=== PATIENT | female | born 1965 | race Native Hawaiian/Other Pacific Islander ===

== ENCOUNTER → 2018-04-01 | Outpatient (CLI) | payer BC ==
--- NOTE | 2018-04-08 10:15 | MM ---
Reason for exam: screening (asymptomatic). Last mammogram was performed 1 year and 1 month ago. History: Patient is postmenopausal. Family history of breast cancer in maternal grandmother, breast cancer in maternal aunt, and breast cancer in paternal aunt. Pre-pectoral saline implants in both breasts, 2004. Taking antineoplastic beginning at age 52. Physical Findings: A clinical breast exam by your physician is recommended on an annual basis and results should be correlated with mammographic findings. MG Screening Mammo Implant/CAD Bilateral CC, MLO, and ID view(s) were taken. Prior study comparison: February 15, 2017, mammogram, performed at [facility]. February 01, 2015, mammogram, performed at [facility]. The breast tissue is heterogeneously dense. This may lower the sensitivity of mammography. There are benign appearing round calcifications bilaterally. Bilateral subglandular implants redemonstrated. ASSESSMENT: Benign, BI-RAD 2 RECOMMENDATION: Routine screening mammogram of both breasts in 1 year.
== END | disposition home or self-care (01) ==
LOC: RADMAMWWP 07:04
PROVIDERS: ATTEND Family Medicine
DX: Z12.31 Encounter for screening mammogram for malignant neoplasm of breast (principal)
CPT/HCPCS: 77067

== ENCOUNTER → 2019-04-17 | Outpatient (CLI) | payer BC ==
--- NOTE | 2019-04-18 11:18 | MM ---
Reason for exam: screening (asymptomatic). Last mammogram was performed 1 year ago. History: Patient is postmenopausal. Family history of breast cancer in maternal grandmother, breast cancer in maternal aunt, and breast cancer in paternal aunt. Pre-pectoral saline implants in both breasts, 2004. Taking antineoplastic beginning at age 52. Physical Findings: A clinical breast exam by your physician is recommended on an annual basis and results should be correlated with mammographic findings. MG 3D Screen Mammo Imp/Cad Bilateral CC, MLO, and ID view(s) were taken. Prior study comparison: April 01, 2018, bilateral MG screening mammo implant/CAD. February 15, 2017, mammogram, performed at [facility]. The breast tissue is heterogeneously dense. This may lower the sensitivity of mammography. Benign appearing bilateral calcifications. No suspicious abnormality. Bilateral prepectoral saline implants. No significant changes when compared with prior studies. ASSESSMENT: Benign, BI-RAD 2 RECOMMENDATION: Routine screening mammogram of both breasts in 1 year.
== END | disposition home or self-care (01) ==
LOC: RADMAMWWP 06:57
PROVIDERS: ATTEND Family Medicine
DX: Z12.39 Encounter for other screening for malignant neoplasm of breast (principal)
CPT/HCPCS: 77063; 77067

== ENCOUNTER 2019-06-02 06:37 | Inpatient (IN) | payer BC ==
[2019-06-02] MEDS ORDERED: HYDROmorphone 0.5 MG/0.5 ML SYRINGE IVP STA (07:02)
[2019-06-02] MEDS ORDERED: SODIUM CHLORIDE 0.9% 1,000 ML IV STA (07:02)
[2019-06-02 07:05] LABS: Glucose,Whole Blood 172 mg/dL (75-99)
[2019-06-02] MEDS: ONDANSETRON 4 MG/2 ML VIAL IVP STA (07:11)
--- NOTE | 2019-06-02 07:11 | ED ---
General Adult HPI - General Chief complaint: Abdominal Pain Stated complaint: Vomiting,Abdominal Pain Time Seen by Provider: 06/02/19 06:45 Source: patient, RN notes reviewed Mode of arrival: ambulatory Limitations: no limitations - History of Present Illness Initial comments: 53-year-old female with a past medical history diabetes mellitus, hyperlipide mami, hypertension presents to the emergency department for chief complaint of right upper quadrant pain. Patient has had this pain for about 3 hours now. States it started suddenly. Patient does admit to nausea as well. Does admit that it radiates to her back at times. Denies lower abdominal pain. Denies history of cholecystectomy. Patient denies any radiating chest pain or shortness of breath.Patient has no other complaints at this time including shortness of breath, chest pain, headache, or visual changes. - Related Data Allergies Allergy/AdvReac Type Severity Reaction Status Date / Time No Known Allergies Allergy Verified 06/02/19 06:51 Review of Systems ROS Statement: Those systems with pertinent positive or pertinent negative responses have been documented in the HPI. ROS Other: All systems not noted in ROS Statement are negative. Past Medical History Past Medical History: Diabetes Mellitus, Hyperlipidemia, Hypertension History of Any Multi-Drug Resistant Organisms: None Reported Past Surgical History: Section Past Psychological History: Anxiety Smoking Status: Never smoker Past Alcohol Use History: None Reported Past Drug Use History: None Reported General Exam Limitations: no limitations General appearance: alert, in no apparent distress Head exam: Present: atraumatic, normocephalic, normal inspection Eye exam: Present: normal appearance, PERRL, EOMI. Absent: scleral icterus, conjunctival injection, periorbital swelling ENT exam: Present: normal exam, mucous membranes moist Neck exam: Present: normal inspection, full ROM. Absent: tenderness, meningismus, lymphadenopathy Respiratory exam: Present: normal lung sounds bilaterally. Absent: respiratory distress, wheezes, rales, rhonchi, stridor Cardiovascular Exam: Present: regular rate, normal rhythm, normal heart sounds. Absent: systolic murmur, diastolic murmur, rubs, gallop, clicks GI/Abdominal exam: Present: soft, tenderness (RUQ tenderness), normal bowel sounds. Absent: distended, guarding, rebound, rigid Expanded GI/Abdominal exam: Present: Ortega's sign. Absent: psoas sign, obturator sign, heel tap sign Neurological exam: Present: alert Course Vital Signs 06/02/19 06:45 Temperature 97.0 F L Pulse Rate 73 Respiratory 18 Rate Blood Pressure 163/109 O2 Sat by Pulse 96 Oximetry EKG Findings - EKG Comments: EKG Findings:: Normal sinus rhythm, ventricular rate 67, ND interval 180, QTc 464 Medical Decision Making - Medical Decision Making 53-year-old female presents for right upper quadrant pain. Positive Ortega sign. Radiating to the back. Vitals are stable. CBC CMP unremarkable. No tr ansaminitis or hyperbilirubinemia. However abdominal ultrasound did reveal cholelithiasis with gallbladder hydrops and borderline CBD dilation. Correlate clinically for acute cholecystitis. Although patient does not have transaminitis her physical exam is consistent with a cholecystitis given pos itive Ortega sign pain radiating to the back. I consulted Dr. Tiwari who does accept this admission, recommends nothing by mouth diet. Patient was given one dose of Zosyn here in the emergency department. The patient does have an elevated lactic acid however does not meet sepsis criteria. Likely secondary to dehydration. - Lab Data Result diagrams: 06/02/19 07:04 06/02/19 07:04 Lab Results 06/02/19 06/02/19 06/02/19 Range/Units 07:03 07:04 07:04 WBC 6.9 (3.8-10.6) k/uL RBC 5.37 (3.80-5.40) m/uL Hgb 16.8 H (11.4-16.0) gm/dL Hct 50.0 H (34.0-46.0) % MCV 93.0 (80.0-100.0) fL MCH 31.3 (25.0-35.0) pg MCHC 33.7 (31.0-37.0) g/dL RDW 13.0 (11.5-15.5) % Plt Count 190 (150-450) k/uL Neutrophils % 66 % Lymphocytes % 20 % Monocytes % 5 % Eosinophils % 6 % Basophils % 1 % Neutrophils # 4.6 (1.3-7.7) k/uL Lymphocytes # 1.4 (1.0-4.8) k/uL Monocytes # 0.4 (0-1.0) k/uL Eosinophils # 0.4 (0-0.7) k/uL Basophils # 0.0 (0-0.2) k/uL Sodium (137-145) mmol/L Potassium (3.5-5.1) mmol/L Chloride (98-107) mmol/L Carbon Dioxide (22-30) mmol/L Anion Gap mmol/L BUN (7-17) mg/dL Creatinine (0.52-1.04) mg/dL Est GFR (CKD-EPI)AfAm (>60 ml/min/1.73 sqM) Est GFR (CKD-EPI)NonAf (>60 ml/min/1.73 sqM) Glucose (74-99) mg/dL POC Glucose (mg/dL) 172 H (75-99) mg/dL POC Glu Viticulture Teacher ID Sharri Olivera Plasma Lactic Acid Stevan (0.7-2.0) mmol/L Calcium (8.4-10.2) mg/dL Total Bilirubin (0.2-1.3) mg/dL AST (14-36) U/L ALT (4-34) U/L Alkaline Phosphatase (38-126) U/L Troponin I (0.000-0.034) ng/mL Total Protein (6.3-8.2) g/dL Albumin (3.5-5.0) g/dL Amylase (30-110) U/L Lipase (23-300) U/L Urine Color Light Yellow Urine Appearance Clear (Clear) Urine pH 7.0 (5.0-8.0) Ur Specific [place] 1.026 (1.001-1.035) Urine Protein Negative (Negative) Urine Glucose (UA) 4+ H (Negative) Urine Ketones Negative (Negative) Urine Blood Negative (Negative) Urine Nitrite Negative (Negative) Urine Bilirubin Negative (Negative) Urine Urobilinogen <2.0 (<2.0) mg/dL Ur Leukocyte Esterase Small H (Negative) Urine RBC 1 (0-5) /hpf Urine WBC 3 (0-5) /hpf Ur Squamous Epith Cells <1 (0-4) /hpf 06/02/19 06/02/19 06/02/19 Range/Units 07:04 07:04 07:04 WBC (3.8-10.6) k/uL RBC (3.80-5.40) m/uL Hgb (11.4-16.0) gm/dL Hct (34.0-46.0) % MCV (80.0-100.0) fL MCH (25.0-35.0) pg MCHC (31.0-37.0) g/dL RDW (11.5-15.5) % Plt Count (150-450) k/uL Neutrophils % % Lymphocytes % % Monocytes % % Eosinophils % % Basophils % % Neutrophils # (1.3-7.7) k/uL Lymphocytes # (1.0-4.8) k/uL Monocytes # (0-1.0) k/uL Eosinophils # (0-0.7) k/uL Basophils # (0-0.2) k/uL Sodium 140 (137-145) mmol/L Potassium 4.1 (3.5-5.1) mmol/L Chloride 104 (98-107) mmol/L Carbon Dioxide 25 (22-30) mmol/L Anion Gap 11 mmol/L BUN 20 H (7-17) mg/dL Creatinine 0.70 (0.52-1.04) mg/dL Est GFR (CKD-EPI)AfAm >90 (>60 ml/min/1.73 sqM) Est GFR (CKD-EPI)NonAf >90 (>60 ml/min/1.73 sqM) Glucose 178 H (74-99) mg/dL POC Glucose (mg/dL) (75-99) mg/dL POC Glu Viticulture Teacher ID Plasma Lactic Acid Stevan 2.5 H* (0.7-2.0) mmol/L Calcium 10.0 (8.4-10.2) mg/dL Total Bilirubin 0.4 (0.2-1.3) mg/dL AST 25 (14-36) U/L ALT 17 (4-34) U/L Alkaline Phosphatase 96 (38-126) U/L Troponin I <0.012 (0.000-0.034) ng/mL Total Protein 7.6 (6.3-8.2) g/dL Albumin 4.3 (3.5-5.0) g/dL Amylase 53 (30-110) U/L Lipase 98 (23-300) U/L Urine Color Urine Appearance (Clear) Urine pH (5.0-8.0) Ur Specific [place] (1.001-1.035) Urine Protein (Negative) Urine Glucose (UA) (Negative) Urine Ketones (Negative) Urine Blood (Negative) Urine Nitrite (Negative) Urine Bilirubin (Negative) Urine Urobilinogen (<2.0) mg/dL Ur Leukocyte Esterase (Negative) Urine RBC (0-5) /hpf Urine WBC (0-5) /hpf Ur Squamous Epith Cells (0-4) /hpf Disposition Clinical Impression: Acute cholecystitis Disposition: ADMITTED IP TO THIS HOSP Condition: Fair Is patient prescribed a controlled substance at d/c from ED?: No Time of Disposition: 08:32
[2019-06-02 07:42] LABS: Appearance,Urine Clear (Clear); Bilirubin,Urine Negative (Negative); Blood,Urine Negative (Negative); Color,Urine Light Yellow; Glucose,Urine (UA) 4+ (Negative); Ketones,Urine Negative (Negative); Leukocyte Esterase,Urine Small (Negative); Nitrite,Urine Negative (Negative); Protein,Urine Negative (Negative); RBC,Urine 1 /hpf (0-5); Specific Gravity,Urine 1.026 (1.001-1.035); Squamous Epithelial Cell,Urine <1 /hpf (0-4); Urobilinogen,Urine <2.0 mg/dL (<2.0); WBC,Urine 3 /hpf (0-5)
[2019-06-02 07:43] LABS: Basophils % (A) 1 %; Eosinophils # (A) 0.4 k/uL (0-0.7); Eosinophils % (A) 6 %; HGB 16.8 gm/dL (11.4-16.0); Lymphocytes # (A) 1.4 k/uL (1.0-4.8); Lymphocytes % (A) 20 %; MCH 31.3 pg (25.0-35.0); MCHC 33.7 g/dL (31.0-37.0); Monocytes # (A) 0.4 k/uL (0-1.0); Monocytes % (A) 5 %; Neutrophils # (A) 4.6 k/uL (1.3-7.7); Neutrophils % (A) 66 %; Platelet Count 190 k/uL (150-450); RBC 5.37 m/uL (3.80-5.40); WBC 6.9 k/uL (3.8-10.6)
[2019-06-02 07:48] LABS: Albumin 4.3 g/dL (3.5-5.0); Glucose 178 mg/dL (74-99); Total Protein 7.6 g/dL (6.3-8.2)
[2019-06-02 07:49] LABS: ALT 17 U/L (4-34); AST 25 U/L (14-36); African American GFR (CKD) >90 (>60 ml/min/1.73 sqM); Alkaline Phosphatase 96 U/L (38-126); Amylase 53 U/L (30-110); Anion Gap 11 mmol/L; Blood Urea Nitrogen 20 mg/dL (7-17); Carbon Dioxide 25 mmol/L (22-30); Chloride 104 mmol/L (98-107); Non-African American GFR(CKD) >90 (>60 ml/min/1.73 sqM); Potassium 4.1 mmol/L (3.5-5.1); Sodium 140 mmol/L (137-145); Total Bilirubin 0.4 mg/dL (0.2-1.3)
--- NOTE | 2019-06-02 08:02 | US ---
EXAMINATION TYPE: US abdomen limited DATE OF EXAM: 06/02/2019 COMPARISON: NONE CLINICAL HISTORY: RUQ. Abdomen pain and N/V x couple hours EXAM MEASUREMENTS: Liver Length: 17.0 cm Gallbladder Wall: 0.3 cm CBD: 0.6 cm Right Kidney: 12.2 x 5.8 x 5.6 cm Pancreas: visualized portions wnl, limited by overlying midline bowel gas Liver: wnl Gallbladder: hydropic, multiple mobile shadowing echogenic stones seen with largest measuring 1.8cm Evidence for sonographic Ortega's sign: yes CBD: borderline dilated Right Kidney: wnl IMPRESSION: Cholelithiasis with gallbladder hydrops and borderline CBD dilatation. Correlate clinically for acute cholecystitis.
--- NOTE | 2019-06-02 08:25 | XR ---
EXAMINATION TYPE: XR KUB DATE OF EXAM: 06/02/2019 COMPARISON: NONE HISTORY: Pain TECHNIQUE: Single supine KUB image of the abdomen is obtained FINDINGS: Small bowel demonstrates no evidence for dilatation or air fluid levels. Gas and fecal material is seen in non-distended colon. No convincing evidence for pneumoperitoneum. No unusual calcifications. The lung bases are clear. The osseous structures are intact. IMPRESSION: 1. Overall nonobstructive bowel gas pattern.
[2019-06-02] MEDS ORDERED: ONDANSETRON 4 MG/2 ML VIAL IVP PRN (08:26)
[2019-06-02] MEDS ORDERED: NALOXONE 0.4 MG/ML 1 ML VIAL IV PRN (08:26)
[2019-06-02] MEDS ORDERED: HYDROmorphone 0.5 MG/0.5 ML SYRINGE IVP PRN (08:26)
[2019-06-02] MEDS ORDERED: PIPERACILLIN-TAZOBACTAM 3.375 GM in SODIUM CHLORIDE 0.9% 100 ML IVPB STA (08:27)
[2019-06-02] MEDS: SODIUM CHLORIDE 0.9% 1,000 ML IV SCH (08:52)
[2019-06-02] MEDS: PANTOPRAZOLE 40 MG/10 ML VIAL IVP SCH (10:49)
[2019-06-02] MEDS: LISINOPRIL 20 MG TAB PO SCH (10:49)
[2019-06-02] MEDS: VENLAFAXINE HCL ER 150 MG CAP PO SCH (11:20)
[2019-06-02] MEDS: PRAVASTATIN SODIUM 20 MG TAB PO SCH (11:20)
[2019-06-02 11:27] LABS: Glucose,Whole Blood 106 mg/dL (75-99)
[2019-06-02] MEDS: INSULIN ASPART (NovoLOG) 100 UNIT/ML VIAL SQ SCH ×3 (11:58→20:08)
--- NOTE | 2019-06-02 14:46 | P.GSHP ---
History of Present Illness H&P Date: 06/02/19 Chief Complaint: abdominal pain CHIEF COMPLAINT: Abdominal pain HISTORY OF PRESENT ILLNESS: 53-year-old female who presented to the emergency room with a chief complaint of abdominal pain. Patient reports she began having an aching pain in her right upper quadrant this morning. She reports the pain radiated to her back. She reports nausea and emesis this morning which has since resolved. PAST MEDICAL HISTORY: See list. PAST SURGICAL HISTORY: See list. SOCIAL HISTORY: No illicit drug use. REVIEW OF SYSTEMS: CONSTITUTIONAL: Denies fever or chills. HEENT: Denies blurred vision, vision changes, or eye pain. Denies hemoptysis CARDIOVASCULAR: Denies chest pain or pressure. RESPIRATORY: No shortness of breath. GASTROINTESTINAL: Refer to [facility] for pertinent findings HEMATOLOGIC: Denies bleeding disorders. GENITOURINARY: Denies any blood in urine. SKIN: Denies pruitis. Denies rash. PHYSICAL EXAM: VITAL SIGNS: Reviewed. GENERAL: Well-developed in no acute distress. HEENT: No sclera icterus. Extraocular movements grossly intact. Moist buccal mucosa. Head is atraumatic, normocephalic. ABDOMEN: Soft. Nondistended. Nontender. NEUROLOGIC: Alert and oriented. Cranial nerves II through XII grossly intact. LABORATORY DATA: WBC 6.9. Hemoglobin 16.8. Platelet count 190. Lactic acid 2.5. Bilirubin 0.4. AST 25. ALT 17. IMAGING: -Abdominal x-ray: Overall nonobstructive bowel gas pattern -Abdominal ultrasound: Cholelithiasis with gallbladder hydrops and borderline CBD dilation. ASSESSMENT: 1. Abdominal pain 2. Cholelithiasis PLAN: -Clear liquid diet. Nothing by mouth midnight -Patient to undergo laparoscopic cholecystectomy tomorrow with Dr. Tiwari Nurse practitioner note has been reviewed by physician. Signing provider agrees with the documented findings, assessment, and plan of care. Past Medical History Past Medical History: Diabetes Mellitus, Hyperlipidemia, Hypertension History of Any Multi-Drug Resistant Organisms: None Reported Past Surgical History: Section Past Anesthesia/Blood Transfusion Reactions: No Reported Reaction Past Psychological History: Anxiety Smoking Status: Never smoker Past Alcohol Use History: None Reported Past Drug Use History: None Reported - Past Family History Mother Family Medical History: Diabetes Mellitus Father Family Medical History: Cancer, Diabetes Mellitus, Hypertension Medications and Allergies Home Medications Medication Instructions Recorded Confirmed Type Ertugliflozin/Metformin 1 tab PO BID 06/02/19 06/02/19 History [Segluromet 7.5-1,000 mg Tablet] Lisinopril 20 mg PO DAILY 06/02/19 06/02/19 History Pravastatin Sodium [Pravachol] 20 mg PO DAILY 06/02/19 06/02/19 History Testosterone Cypionate 25 mg IM Q21D 06/02/19 06/02/19 History [Depo-Testosterone] Venlafaxine HCl ER [Effexor Xr] 150 mg PO DAILY 06/02/19 06/02/19 History Allergies Allergy/AdvReac Type Severity Reaction Status Date / Time No Known Allergies Allergy Verified 06/02/19 09:20 Surgical - Exam Vital Signs Temp Pulse Resp BP Pulse Ox 97.0 F L 73 18 163/109 96 06/02/19 06:45 06/02/19 06:45 06/02/19 06:45 06/02/19 06:45 06/02/19 06:45 Results - Labs 06/02/19 07:04 06/02/19 07:04 Abnormal Lab Results - Last 24 Hours (Table) 06/02/19 06/02/19 06/02/19 Range/Units 07:03 07:04 07:04 Hgb 16.8 H (11.4-16.0) gm/dL Hct 50.0 H (34.0-46.0) % BUN (7-17) mg/dL Glucose (74-99) mg/dL POC Glucose (mg/dL) 172 H (75-99) mg/dL Plasma Lactic Acid Stevan (0.7-2.0) mmol/L Urine Glucose (UA) 4+ H (Negative) Ur Leukocyte Esterase Small H (Negative) 06/02/19 06/02/19 06/02/19 Range/Units 07:04 07:04 11:26 Hgb (11.4-16.0) gm/dL Hct (34.0-46.0) % BUN 20 H (7-17) mg/dL Glucose 178 H (74-99) mg/dL POC Glucose (mg/dL) 106 H (75-99) mg/dL Plasma Lactic Acid Stevan 2.5 H* (0.7-2.0) mmol/L Urine Glucose (UA) (Negative) Ur Leukocyte Esterase (Negative) Diabetes panel 06/02/19 Range/Units 07:04 Sodium 140 (137-145) mmol/L Potassium 4.1 (3.5-5.1) mmol/L Chloride 104 (98-107) mmol/L Carbon Dioxide 25 (22-30) mmol/L BUN 20 H (7-17) mg/dL Creatinine 0.70 (0.52-1.04) mg/dL Glucose 178 H (74-99) mg/dL Calcium 10.0 (8.4-10.2) mg/dL AST 25 (14-36) U/L ALT 17 (4-34) U/L Alkaline Phosphatase 96 (38-126) U/L Total Protein 7.6 (6.3-8.2) g/dL Albumin 4.3 (3.5-5.0) g/dL Calcium panel 06/02/19 Range/Units 07:04 Calcium 10.0 (8.4-10.2) mg/dL Albumin 4.3 (3.5-5.0) g/dL Pituitary panel 06/02/19 Range/Units 07:04 Sodium 140 (137-145) mmol/L Potassium 4.1 (3.5-5.1) mmol/L Chloride 104 (98-107) mmol/L Carbon Dioxide 25 (22-30) mmol/L BUN 20 H (7-17) mg/dL Creatinine 0.70 (0.52-1.04) mg/dL Glucose 178 H (74-99) mg/dL Calcium 10.0 (8.4-10.2) mg/dL Adrenal panel 06/02/19 Range/Units 07:04 Sodium 140 (137-145) mmol/L Potassium 4.1 (3.5-5.1) mmol/L Chloride 104 (98-107) mmol/L Carbon Dioxide 25 (22-30) mmol/L BUN 20 H (7-17) mg/dL Creatinine 0.70 (0.52-1.04) mg/dL Glucose 178 H (74-99) mg/dL Calcium 10.0 (8.4-10.2) mg/dL Total Bilirubin 0.4 (0.2-1.3) mg/dL AST 25 (14-36) U/L ALT 17 (4-34) U/L Alkaline Phosphatase 96 (38-126) U/L Total Protein 7.6 (6.3-8.2) g/dL Albumin 4.3 (3.5-5.0) g/dL
[2019-06-02] MEDS: HEPARIN SODIUM,PORCINE 5,000 UNIT/ML 1 ML VIAL SQ SCH (15:47)
[2019-06-02] MEDS: ACETAMINOPHEN TAB 325 MG TAB PO PRN ×2 (15:47→21:25)
[2019-06-02 17:08] LABS: Glucose,Whole Blood 93 mg/dL (75-99)
--- NOTE | 2019-06-02 18:39 | P.CONS ---
History of Present Illness - Reason for Consult Consult date: 06/02/19 Medical management Requesting physician: Renard Tiwari - Chief Complaint Abdominal pain - History of Present Illness Consultation: This is a very pleasant 53-year-old patient of Dr. Russell Valdez. Chronic stable medical conditions include diabetes mellitus type 2, hyperlipidemia, hypertension,. Denies any cardiac history. Early this morning with right upper quadrant abdominal pain. Did not radiate anywhere. Associated nausea been followed by vomiting. No fever no chills. Symptoms persisted decided to go to the ER. Underwent abdominal ultrasound didn't confirm gallbladder disease. 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 Physical examination: VITAL SIGNS: 97, 73, 18, 132/80, 99% on room air GENERAL: BMI 37.1, sitting up in bed, awake. EYES: Pupils equal. Conjunctiva normal. HEENT: External appearance of nose and ears normal, oral cavity grossly normal. NECK: JVD not raised; masses not palpable. HEART: First and second heart sounds are normal; no edema. LUNGS: Respiratory rate normal; clear to auscultation. ABDOMEN: Soft, right upper quadrant tenderness, no guarding or rigidity, liver spleen not palpable, no masses palpable. PSYCH: Alert and oriented x3; mood and affect normal. NEUROLOGICAL: Cranial nerves grossly intact; no facial asymmetry, power and sensation grossly intact. LYMPHATICS: No lymph nodes palpable in the axilla and neck INVESTIGATIONS, reviewed in the clinical context: White count 6.9 hemoglobin 16.8 platelets 190 progression 4.1 creatinine 0.7 Lactic acid 2.5 Troponin I is less than 0.012 EKG tracing personally reviewed by me-normal sinus rhythm some nonspecific findings Abdominal ultrasound-gallbladder showing hydropic multiple mobile shadow is echogenic stones largest being 1.8 cm,: By -borderline dilated Assessment: -Multiple choledocholithiasis, symptomatic -Obesity BMI 37.1 -Diabetes mellitus type 2 on oral hypoglycemic -Essential hypertension -Hyperlipidemia Plan: Home medications resumed. Accu-Cheks will be closely followed. IV fluids. No obvious evidence of infection. Getting subcu heparin for DVT prophylaxis. From a cardiovascular standpoint patient is a low risk for surgery with no cardiac contraindications for the same. Discussed with the patient question were answered. Thank you Dr. Tiwari Past Medical History Past Medical History: Diabetes Mellitus, Hyperlipidemia, Hypertension History of Any Multi-Drug Resistant Organisms: None Reported Past Surgical History: Section Past Anesthesia/Blood Transfusion Reactions: No Reported Reaction Past Psychological History: Anxiety Smoking Status: Never smoker Past Alcohol Use History: None Reported Past Drug Use History: None Reported - Past Family History Mother Family Medical History: Diabetes Mellitus Father Family Medical History: Cancer, Diabetes Mellitus, Hypertension Medications and Allergies Home Medications Medication Instructions Recorded Confirmed Type Ertugliflozin/Metformin 1 tab PO BID 06/02/19 06/02/19 History [Segluromet 7.5-1,000 mg Tablet] Lisinopril 20 mg PO DAILY 06/02/19 06/02/19 History Pravastatin Sodium [Pravachol] 20 mg PO DAILY 06/02/19 06/02/19 History Testosterone Cypionate 25 mg IM Q21D 06/02/19 06/02/19 History [Depo-Testosterone] Venlafaxine HCl ER [Effexor Xr] 150 mg PO DAILY 06/02/19 06/02/19 History Allergies Allergy/AdvReac Type Severity Reaction Status Date / Time No Known Allergies Allergy Verified 06/02/19 09:20 Physical Exam Vitals: Vital Signs Temp Pulse Pulse Resp BP BP Pulse Ox 06/02/19 11:22 96.0 F L 71 18 124/80 97 06/02/19 08:00 98.0 F 76 18 132/80 99 06/02/19 06:45 97.0 F L 73 18 163/109 96 Intake and Output 06/02/19 06/02/19 06/02/19 06:59 14:59 22:59 Intake Total 1060 Balance 1060 Intake: Intake, IV Titration 460 Amount Piperacillin-Tazobactam 3 100 .375 gm In Sodium Chloride 0.9% 100 ml @ 200 mls/hr IVPB ONCE STA Rx#:[id number] Sodium Chloride 0.9% 1, 360 000 ml @ 120 mls/hr IV . Q8H20M TASNEEM Rx#:[id number] Oral 600 Other: # Voids 1 Weight 104.281 kg 104.281 kg Results CBC & Chem 7: 06/02/19 07:04 06/02/19 07:04 Labs: Abnormal Lab Results - Last 24 Hours (Table) 06/02/19 06/02/19 06/02/19 Range/Units 07:03 07:04 07:04 Hgb 16.8 H (11.4-16.0) gm/dL Hct 50.0 H (34.0-46.0) % BUN (7-17) mg/dL Glucose (74-99) mg/dL POC Glucose (mg/dL) 172 H (75-99) mg/dL Plasma Lactic Acid Stevan (0.7-2.0) mmol/L Urine Glucose (UA) 4+ H (Negative) Ur Leukocyte Esterase Small H (Negative) 06/02/19 06/02/19 06/02/19 Range/Units 07:04 07:04 11:26 Hgb (11.4-16.0) gm/dL Hct (34.0-46.0) % BUN 20 H (7-17) mg/dL Glucose 178 H (74-99) mg/dL POC Glucose (mg/dL) 106 H (75-99) mg/dL Plasma Lactic Acid Stevan 2.5 H* (0.7-2.0) mmol/L Urine Glucose (UA) (Negative) Ur Leukocyte Esterase (Negative)
[2019-06-02 20:02] LABS: Glucose,Whole Blood 104 mg/dL (75-99)
[2019-06-03] MEDS ORDERED: LACTATED RINGERS 1,000 ML IV SCH (06:36)
[2019-06-03 07:11] LABS: Glucose,Whole Blood 134 mg/dL (75-99)
[2019-06-03] MEDS ORDERED: IV FLUID CONTINUATION 1,000 ML IV ONE (07:38)
[2019-06-03] MEDS: ACETAMINOPHEN TAB 325 MG TAB PO PRN (07:41)
[2019-06-03] MEDS: INSULIN ASPART (NovoLOG) 100 UNIT/ML VIAL SQ SCH ×2 (07:47→12:49)
[2019-06-03] MEDS: HEPARIN SODIUM,PORCINE 5,000 UNIT/ML 1 ML VIAL SQ SCH ×3 (07:48→07:56)
[2019-06-03] MEDS: ONDANSETRON 4 MG/2 ML VIAL IVP STA (07:55)
[2019-06-03] MEDS ORDERED: DEXAMETHASONE SOD PHOS (MDV) 100 MG/10 ML VIAL IVP ONE (07:55)
[2019-06-03] MEDS ORDERED: ROCURONIUM BROMIDE 10 MG/ML 5 ML VIAL IV ONE (08:45)
[2019-06-03] MEDS ORDERED: KETOROLAC 30 MG/ML 1 ML VIAL ONE (08:45)
[2019-06-03] MEDS ORDERED: PROPOFOL 10 MG/ML 20 ML VIAL IV ONE (08:45)
[2019-06-03] MEDS ORDERED: LABETALOL 5 MG/ML VIAL MDV ONE (08:45)
[2019-06-03] MEDS ORDERED: NEOSTIGMINE 1 MG/ML 10 ML VIAL ONE (08:45)
[2019-06-03] MEDS ORDERED: LIDOCAINE 1% INJ 10MG/ML (20 ML MDV) ONE (08:45)
[2019-06-03] MEDS ORDERED: MIDAZOLAM 2 MG/2 ML VIAL ONE (08:45)
[2019-06-03] MEDS ORDERED: ALFENTANIL 500 MCG/ML 2 ML AMP IV ONE (08:45)
[2019-06-03] MEDS ORDERED: SUCCINYLCHOLINE CHLORIDE 100 MG/5 ML SYR IV ONE (08:45)
[2019-06-03] MEDS ORDERED: GLYCOPYRROLATE 0.2 MG/ML 2 ML VIAL ONE (08:45)
[2019-06-03] MEDS ORDERED: BUPIVACAIN-EPI 0.25%-1:200,000 30 ML VIAL SQ ONE (08:46)
[2019-06-03] MEDS ORDERED: ceFAZolin 1,000 MG VIAL IVPB ONE (08:50)
[2019-06-03] MEDS ORDERED: LACTATED RINGERS 1,000 ML IV ONE (09:15)
--- NOTE | 2019-06-03 09:55 | P.OP ---
Date of Procedure: 06/03/19 Preoperative Diagnosis: Cholecystitis Postoperative Diagnosis: Cholecystitis Procedure(s) Performed: Laparoscopic cholecystectomy Anesthesia: OFE Surgeon: Renard Tiwari Estimated Blood Loss (ml): 5 Pathology: other (Gallbladder) Condition: stable Disposition: PACU Description of Procedure: The patient was placed on the operating table. The patient received a general endotracheal tube anesthesia. The patients abdomen was prepped and draped in the usual sterile fashion. Through an infraumbilical stab incision, the fascia of the anterior abdominal wall was grasped with a pair of Kochers and then the Veress needle was placed in the peritoneal cavity. Position of the Veress needle was confirmed with positive drop test. The abdomen was then insufflated. After adequate insufflation, the 10 mm trocar was placed in the peritoneal cavity. Following this the laparoscope was placed in the peritoneal cavity. The patient was placed in the head-up, right side up position and then a 5 mm trocar was placed in the right lateral and right subcostal position under direct visualization. A 8 mm trocar was placed in the epigastric position. The gallbladder was grasped in the fundus and infundibulum. Traction on the gallbladder was placed in the lateral and the cephalad positions. The triangle of Calot was visualized.. The cystic duct was bluntly dissected until the union of the cystic duct and common bile duct was seen. A critical view of safety was achieved. The cystic duct was then divided and sealed with the Harmonic scissors. A PDS Endoloop was then placed throughout the cystic duct stump. The cystic artery divided and sealed with the Harmonic scissors. The gallbladder was then removed from the liver bed using Harmonic scissors. The gallbladder was then extracted through the epigastric port site. Operative field was checked for any bleeding spots and Harmonic scissors was used to coagulate the liver bed. The abdomen was irrigated. The trocars were removed. The skin was closed using interrupted 3-0 Vicryl suture. Dermabond dressing were applied. The patient tolerated the procedure well.
[2019-06-03 10:10] LABS: Glucose,Whole Blood 178 mg/dL (75-99)
[2019-06-03] MEDS ORDERED: HYDROmorphone 1 MG/ML 1 ML SYRINGE IVP ONE (10:18)
[2019-06-03 11:36] LABS: Glucose,Whole Blood 200 mg/dL (75-99)
[2019-06-03] MEDS: VENLAFAXINE HCL ER 150 MG CAP PO SCH (12:41)
[2019-06-03] MEDS: PRAVASTATIN SODIUM 20 MG TAB PO SCH (12:41)
[2019-06-03] MEDS: LISINOPRIL 20 MG TAB PO SCH (12:42)
[2019-06-03] MEDS: SODIUM CHLORIDE 0.9% 1,000 ML IV SCH (12:43)
[2019-06-03 12:56] VITALS: BP 132/82; PULSE 60; RESP 17; TEMP 98.1
[2019-06-03] MEDS: PANTOPRAZOLE 40 MG/10 ML VIAL IVP SCH (13:19)
--- NOTE | 2019-06-03 14:27 | P.DS ---
Providers Date of admission: 06/02/19 08:25 Expected date of discharge: 06/03/19 Attending physician: Renard Tiwari Consults: 06/02/19 10:38 Consult Physician Routine Consulting Provider: Flip Sandoval Consult Reason/Comments: medical management Do you want consulting provider notified?: Yes Primary care physician: Russell Valdez [facility] Hospital Course: 53-year-old female who presented to the emergency room with a chief complaint of abdominal pain. Patient was found to have cholecystitis and cholelithiasis. She underwent laparoscopic cholecystectomy with Dr. Tiwari on 06/03/2019. Patient is doing well postoperatively without any immediate complications. She was deemed stable for discharge home today per Dr. Tiwari. Please see EMR for further hospital course details. Discharge Diagnosis: 1. Abdominal pain 2. Cholelithiasis 3. Cholecystitis Nurse practitioner note has been reviewed by physician. Signing provider agrees with the documented findings, assessment, and plan of care. Patient Condition at Discharge: Stable Plan - Discharge Summary Discharge Rx Participant: Yes New Discharge Prescriptions: New Hydrocodone/Acetaminophen [[place] 5-325] 1 tab PO Q6HR PRN #10 tab PRN Reason: Pain No Action Venlafaxine HCl ER [Effexor Xr] 150 mg PO DAILY Pravastatin Sodium [Pravachol] 20 mg PO DAILY Ertugliflozin/Metformin [Segluromet 7.5-1,000 mg Tablet] 1 tab PO BID Lisinopril 20 mg PO DAILY Testosterone Cypionate [Depo-Testosterone] 25 mg IM Q21D Discharge Medication List Ertugliflozin/Metformin [Segluromet 7.5-1,000 mg Tablet] 1 tab PO BID 06/02/19 [History] Lisinopril 20 mg PO DAILY 06/02/19 [History] Pravastatin Sodium [Pravachol] 20 mg PO DAILY 06/02/19 [History] Testosterone Cypionate [Depo-Testosterone] 25 mg IM Q21D 06/02/19 [History] Venlafaxine HCl ER [Effexor Xr] 150 mg PO DAILY 06/02/19 [History] Hydrocodone/Acetaminophen [[place] 5-325] 1 tab PO Q6HR PRN #10 tab 06/03/19 [Rx] Follow up Appointment(s)/Referral(s): Russell Valdez MD [Primary Care Provider] - 1-2 days Renard Tiwari MD [STAFF PHYSICIAN] - 1 Week Activity/Diet/Wound Care/Special Instructions: No driving while taking [place] No lifting over 10 pounds You may shower. No soaking or tub baths Very light activity until you are reevaluated at your follow up appointment with your surgeon
--- NOTE | 2019-06-03 19:48 | P.PN ---
Progress Note - Text Progress Note Date: 06/03/19 - Chief Complaint Abdominal pain Interval history: This is a very pleasant 53-year-old patient of Dr. Russell Valdez. Chronic stable medical conditions include diabetes mellitus type 2, hyperlipidemia, hypertension,. Denies any cardiac history. Early this morning with right upper quadrant abdominal pain. Did not radiate anywhere. Associated nausea been followed by vomiting. No fever no chills. Symptoms persisted decided to go to the ER. Underwent abdominal ultrasound didn't confirm gallbladder disease. Admitted for the same Today-underwent laparoscopic cholecystectomy. Patient had just returned to his room this morning. Slight pain. No nausea vomiting. Review of systems: Was done for constitutional, cardiovascular, GI, pulmonary. relevant finding as above Current medications reviewed in today's electronic records Physical examination: VITAL SIGNS: 98.3, 66, 16, 135/80, 93% on 2 L GENERAL: Laying in bed, awake EYES: Pupils equal. Conjunctiva normal. HEENT: External appearance of nose and ears normal, oral cavity grossly normal. NECK: JVD not raised; masses not palpable. HEART: First and second heart sounds are normal; no edema. LUNGS: Respiratory rate normal; clear to auscultation. ABDOMEN: Soft, right upper quadrant tenderness, no guarding or rigidity, liver spleen not palpable, no masses palpable. PSYCH: Alert and oriented x3; mood and affect normal. INVESTIGATIONS, reviewed in the clinical context: White count 6.9 hemoglobin 16.8 platelets 190 progression 4.1 creatinine 0.7 Lactic acid 2.5 Troponin I is less than 0.012 EKG tracing personally reviewed by me-normal sinus rhythm some nonspecific findings Abdominal ultrasound-gallbladder showing hydropic multiple mobile shadow is echogenic stones largest being 1.8 cm,: By -borderline dilated Assessment: -Multiple choledocholithiasis, symptomatic-status post laparoscopic cholecystectomy today -Obesity BMI 37.1 -Diabetes mellitus type 2 on oral hypoglycemic -Essential hypertension -Hyperlipidemia Plan: Doing well. Continue current medication treatment plan. Follow Accu-Cheks. Thank you Dr. Tiwari
[2019-06-04] MEDS ORDERED: PANTOPRAZOLE 40 MG TABLET PO SCH (09:00)
== END 2019-06-03 15:26 | disposition home or self-care (01) | DRG 418 ==
LOC: EC 06:37 → 5NMEDONC 08:25
PROVIDERS: ADMIT Surgery; ATTEND Surgery
PROC: 0FT44ZZ Resection of Gallbladder, Percutaneous Endoscopic Approach (ICD-10-PCS; principal; 2019-06-03 08:25)
DX: K80.00 Calculus of gallbladder with acute cholecystitis without obstruction (principal); K82.1 Hydrops of gallbladder; I10 Essential (primary) hypertension; E78.5 Hyperlipidemia, unspecified; E11.9 Type 2 diabetes mellitus without complications; F41.9 Anxiety disorder, unspecified; E86.0 Dehydration; R79.89 Other specified abnormal findings of blood chemistry; E66.9 Obesity, unspecified; Z68.37 Body mass index [BMI] 37.0-37.9, adult; Z79.84 Long term (current) use of oral hypoglycemic drugs; Z79.899 Other long term (current) drug therapy; Z98.890 Other specified postprocedural states; Z83.3 Family history of diabetes mellitus; Z80.9 Family history of malignant neoplasm, unspecified; Z82.49 Family history of ischemic heart disease and other diseases of the circulatory system
CPT/HCPCS: 36415; 74018; 76705; 80053; 81001; 81025; 82150; 83605; 83690; 84484; 85025; 87040; 88304; 93005; 96361; 96365; 96375; 99285

== ENCOUNTER → 2020-05-19 | Outpatient (CLI) | payer BC ==
[~2020-05-19] MED LIST: DOBUTamine DRIP for NUC MED 500 MG in DEXTROSE/WATER 1 250ML.BAG IV PRN
--- NOTE | 2020-05-19 17:18 | ECHOS ---
STRESS ECHOCARDIOGRAM LUMASON: ____ Vial INDICATIONS: Chest pain. MEDICATIONS: BASELINE HEART RATE: 78 BASELINE BLOOD PRESSURE: 119/89 MAXIMUM HEART RATE: 105 MAXIMUM BLOOD PRESSURE: 183/51 85% MPHR: 142 100% MPHR: 167 METS: MAXIMUM STAGE REACHED: TOTAL EXERCISE TIME: CLINICAL INFORMATION: This 54-year-old female referred by Dr. Valdez for a stress test when the patient got up to start the stress test she became extremely weak and diaphoretic, nauseous, sweaty and was laid supine. Her blood pressure was 100 mmHg. EKG was normal, when she became asymptomatic (patient had no chest pain) dobutamine stress echo was performed. However, at the 30 mcg of dobutamine, once again, she started complaining of being nauseous, sweaty and diaphoretic and the test was prematurely terminated. However, we were able to obtain information regarding the low-dose dobutamine stress echo, which is as follows: Baseline heart rate 78 beats per minute. Baseline blood pressure 119/89 mmHg. Baseline 12-lead EKG showed sinus rhythm with normal ST segments with a leftward axis. The patient received dobutamine infusion per protocol. There were no ECG changes of ischemia. No arrhythmias noted. Peak heart rate 105 beats per minute. Normal blood pressure response. There was no evidence for hypertension during dobutamine infusion. The baseline 2D echo images were suboptimal and Definity contrast was used with 10 mcg followed by 20 mcg of dobutamine. There was a stepwise increment in overall LV contractility without developing any wall motion abnormalities. At recovery, regional and global LV systolic function remained normal. IMPRESSION: 1. Low level dobutamine stress echo shows no evidence for ischemia. 2. Patient could not tolerate higher doses of dobutamine, she would get very nauseous and sweaty. She was also not able to exercise and when she stood up she would get very nauseous and sweaty. Her blood pressure upon standing was 100 mmHg. 3. I recommended that the patient hold hydrochlorothiazide and follow up with her primary care physician. MMODL / IJN: [id number] /
== END | disposition home or self-care (01) ==
LOC: RADNMMAIN 09:50
PROVIDERS: ATTEND Family Medicine
DX: R00.2 Palpitations (principal)
CPT/HCPCS: 93351; J1250; Q9950

== ENCOUNTER → 2020-07-01 | Outpatient (CLI) | payer BC ==
--- NOTE | 2020-07-05 09:10 | MM ---
Reason for exam: screening (asymptomatic). Last mammogram was performed 1 year and 2 months ago. History: Patient is postmenopausal. Family history of breast cancer in maternal grandmother, breast cancer in maternal aunt, and breast cancer in paternal aunt. Pre-pectoral saline implants in both breasts, 2004. Taking hormonal contraceptives. Taking antineoplastic beginning at age 52. Physical Findings: A clinical breast exam by your physician is recommended on an annual basis and results should be correlated with mammographic findings. MG 3D Screen Mammo Imp/Cad Bilateral CC, MLO, and ID view(s) were taken. Prior study comparison: April 17, 2019, bilateral MG 3d screen mammo imp/cad. April 01, 2018, bilateral MG screening mammo implant/CAD. There are scattered fibroglandular densities. Bilateral implants are intact. No significant changes when compared with prior studies. ASSESSMENT: Benign, BI-RAD 2 RECOMMENDATION: Routine screening mammogram of both breasts in 1 year.
== END | disposition home or self-care (01) ==
LOC: RADMAMWWP 07:36
PROVIDERS: ATTEND Family Medicine
DX: Z12.31 Encounter for screening mammogram for malignant neoplasm of breast (principal); Z78.0 Asymptomatic menopausal state; Z80.3 Family history of malignant neoplasm of breast
CPT/HCPCS: 77063; 77067

== ENCOUNTER → 2021-07-29 | Outpatient (CLI) | payer BC ==
--- NOTE | 2021-08-02 09:40 | MM ---
Reason for Exam: Screening (asymptomatic). Last mammogram was performed 1 year(s) and 1 month(s) ago. Patient History: Menarche at age 14. First Full-Term at age 26. Postmenopausal. 2003, Bilateral Implants. Maternal grandmother had breast cancer at or over age 50. Paternal aunt had breast cancer at or over age 50. Maternal aunt had breast cancer at or over age 50. Risk Values: Bridgette 5 year model risk: 1.3%. NCI Lifetime model risk: 9.3%. Prior Study Comparison: 04/01/2018 Bilateral Screening Mammogram, [facility]. 04/17/2019 Bilateral Screening Mammogram, [facility]. 07/01/2020 Bilateral Screening Mammogram, [facility]. Tissue Density: There are scattered fibroglandular densities. Findings: Analyzed By CAD. Bilateral breast implants are present. No significant interval changes are evident. Pattern appears stable. No suspicious groups of microcalcifications, spiculated or lobular masses, architectural distortion or other secondary signs of malignancy are mammographically apparent. Overall Assessment: Benign, BI-RAD 2 Management: Screening Mammogram of both breasts in 1 year. A negative mammogram report should not preclude additional follow up of suspicious palpable abnormalities. Patient should continue monthly self breast exam. A clinical breast exam by your physician is recommended on an annual basis and results should be correlated with mammographic findings. Electronically signed and approved by: Reuben Mcgraw D.O. Radiologis
== END | disposition home or self-care (01) ==
LOC: RADMAMWWP 09:50
PROVIDERS: ATTEND Family Medicine
DX: Z12.31 Encounter for screening mammogram for malignant neoplasm of breast (principal); Z78.0 Asymptomatic menopausal state; Z80.3 Family history of malignant neoplasm of breast
CPT/HCPCS: 77063; 77067

== ENCOUNTER → 2022-12-06 | Outpatient (CLI) | payer BC | END | disposition home or self-care (01) | LOC: LABWHC1 16:23 | PROVIDERS: ATTEND Family Medicine | DX: H34.9 Unspecified retinal vascular occlusion (principal) | CPT/HCPCS: 36415; 81241; 85303; 85306 ==

== ENCOUNTER → 2022-12-08 | Outpatient (CLI) | payer BC ==
--- NOTE | 2022-12-08 09:32 | CT ---
EXAMINATION TYPE: CT brain wo con CT DLP: 1147 mGycm, Automated exposure control for dose reduction was used. DATE OF EXAM: 12/08/2022 8:50 AM COMPARISON: None. CLINICAL INDICATION:Female, 57 years old with history of H34.9 UNSPECIFIED RETINAL VASCULAR OCCLUSION , Lt eye blurred vision TECHNIQUE: Brain: Axial CT images of the brain were obtained with coronal and sagittal reformats created and rev iewed. Contrast used: None. Oral contrast used: None. FINDINGS: Brain: Extra-axial spaces: No abnormal extra-axial fluid collections. Ventricular system: Within normal limits Cerebral parenchyma: No acute intraparenchymal hemorrhage or mass effect. The hood-white junction is well differentiated. Cerebellum: Unremarkable. Mass effect: No evidence of midline shift. Intracranial vasculature: unremarkable Soft tissues: Normal. Calvarium/osseous structures: No depressed skull fracture. Paranasal sinuses and mastoid air cells: Mild scattered paranasal sinus disease. Visualized orbits: Orbital contents are intact. IMPRESSION: No acute intracranial process.
== END | disposition home or self-care (01) ==
LOC: RADCTMAIN 08:17
PROVIDERS: ATTEND Family Medicine
DX: H34.9 Unspecified retinal vascular occlusion (principal); Z82.49 Family history of ischemic heart disease and other diseases of the circulatory system
CPT/HCPCS: 70450

== ENCOUNTER → 2022-12-12 | Outpatient (CLI) | payer BC ==
--- NOTE | 2022-12-13 11:11 | CA ---
Transthoracic Echo Report Name: Kenzie Prather Age: 57 Gender: F : 1965 Exam Date: 12/12/2022 16:19 Exam Location: [facility] Ht (in): 70 Wt (lb): 190 Ordering Physician: Russell Valdez MD Attending/Referring Phys: Ana M Bhakta [facility] Dredge Mate Mitzi Nieto RDCS Procedure CPT: Indications: H34.9 UNSPECIFIED RETINAL VASCULAR OCCLUSION Cardiac Hx: Technical Quality: Fair Contrast 1: Total Dose (mL): Contrast 2: Total Dose (mL): MEASUREMENTS (Male / Female) Normal Values 2D ECHO LV Diastolic Diameter PLAX 2.6 cm 4.2 - 5.9 / 3.9 - 5.3 cm LV Systolic Diameter PLAX 1.6 cm IVS Diastolic Thickness 1.4 cm 0.6 - 1.0 / 0.6 - 0.9 cm LVPW Diastolic Thickness 1.3 cm 0.6 - 1.0 / 0.6 - 0.9 cm LV Relative Wall Thickness 1.0 RV Internal Dim ED PLAX 3.3 cm LA Volume 35.8 cm??? 18 - 58 / 22 - 52 cm??? LA Volume Index 17.2 cm???/m??? 16 - 28 cm???/m??? M-MODE Aortic Root Diameter MM 3.3 cm LA Systolic Diameter MM 3.3 cm LA Ao Ratio MM 1.0 AV Cusp Separation MM 2.3 cm DOPPLER AV Peak Velocity 110.3 cm/s AV Peak Gradient 4.9 mmHg AV Mean Velocity 83.4 cm/s AV Mean Gradient 3.0 mmHg AV Velocity Time Integral 19.6 cm LVOT Peak Velocity 97.8 cm/s LVOT Peak Gradient 3.8 mmHg LVOT Velocity Time Integral 17.7 cm MV Area PHT 4.2 cm??? Mitral E Point Velocity 52.9 cm/s Mitral A Point Velocity 90.1 cm/s Mitral E to A Ratio 0.6 MV Deceleration Time 181.2 ms MV E' Velocity 5.0 cm/s Mitral E to MV E' Ratio 10.6 TR Peak Velocity 178.4 cm/s TR Peak Gradient 12.7 mmHg Right Ventricular Systolic Press 17.7 mmHg FINDINGS Left Ventricle Moderately increased left ventricular wall thickness. Left ventricular cavity size normal. Normal left ventricular systolic function with no obvious regional wall motion abnormalities. Left ventricular ejection fraction is estimated at 55-60 %. Right Ventricle Normal right ventricular size and function. Right ventricular systolic pressure within normal limits. Right Atrium Normal right atrial size. Left Atrium Normal left atrial size. Mitral Valve Structurally normal mitral valve. Trace mitral regurgitation. Aortic Valve Trileaflet aortic valve. No aortic valve stenosis or regurgitation. Tricuspid Valve Structurally normal tricuspid valve. Mild tricuspid regurgitation. Pulmonic Valve Structurally normal pulmonic valve. Pericardium No pericardial effusion. Aorta Normal size aortic root and proximal ascending aorta. CONCLUSIONS 1. Normal left ventricle size and systolic function with moderate LVH 2. Mild tricuspid with trace mitral regurgitation Previewed by: Dr. Albina Cee MD (Electronically Signed) Final Date: 13 December 2022 11:10
== END | disposition home or self-care (01) ==
LOC: RADECHMAIN 16:08
PROVIDERS: ATTEND Family Medicine
DX: I08.1 Rheumatic disorders of both mitral and tricuspid valves (principal); H34.9 Unspecified retinal vascular occlusion; Z82.49 Family history of ischemic heart disease and other diseases of the circulatory system
CPT/HCPCS: 93306

== ENCOUNTER → 2022-12-28 | Outpatient (CLI) | payer BC ==
--- NOTE | 2022-12-28 09:19 | US ---
EXAMINATION TYPE: US duplex aorta DATE OF EXAM: 12/28/2022 COMPARISON: NONE CLINICAL INDICATION: Female, 57 years old with history of Z82.49 FAMILY HX OF ISCHEM HEART DIS AND OT H DIS O; family hx TECHNIQUE: Multiple sonographic images of the abdominal aorta are obtained. FINDINGS: EXAM MEASUREMENTS: Abdominal Aorta: Proximal: 2.1 x 1.9 cm Mid: 1.5 x 1.4 cm Distal: 1.3 x 1.9 cm Bifurcation: 1.3 x 1.3 cm 1.3 x 1.2 cm REFRIGERATION TECH NOTES: IMPRESSION: 1. No suspicious aneurysmal dilatation screening aortic ultrasound
--- NOTE | 2022-12-28 15:35 | US ---
EXAMINATION TYPE: US carotid duplex BILAT DATE OF EXAM: 12/28/2022 COMPARISON: NONE CLINICAL INDICATION: Female, 57 years old with history of Z82.49 FAMILY HX OF ISCHEM HEART DIS AND OT H DIS O; blurred vision left eye TECHNIQUE: Carotid duplex ultrasound examination. Indirect Doppler criteria was utilized. FINDINGS: EXAM MEASUREMENTS: RIGHT: Peak Systolic Velocity (PSV) cm/sec ----- Right CCA: 80.8 ----- Right ICA: 72.1 ----- Right ECA: 83.7 ICA/CCA ratio: 0.9 RIGHT: End Diastole cm/sec ----- Right CCA: 24.1 ----- Right ICA: 28.5 ----- Right ECA: 18.3 LEFT: Peak Systolic Velocity (PSV) cm/sec ----- Left CCA: 90.4 ----- Left ICA: 83.1 ----- Left ECA: 122 ICA/CCA ratio: 0.9 LEFT: End Diastole cm/sec ----- Left CCA: 25 ----- Left ICA: 22.1 ----- Left ECA: 25.4 VERTEBRALS (direction of flow): Right Vertebral: Antegrade Left Vertebral: Antegrade Rhythm: Normal REIMBURSEMENT DIRECTOR NOTES: Vessels torturous dive deep. No significant stenosis seen IMPRESSION: There may be some mild intimal thickening. No significant flow-limiting stenosis based on velocities is evident. Criteria for Assigning % of Stenosis / Diameter reduction (Estimation based on the indirect measurements of the internal carotid artery velocities (ICA PSV). 1. Normal (no stenosis)=ICA PSV < 125 cm/s: ratio < 2.0: ICA EDV<40 cm/s. 2. Less than 50% stenosis=ICA PSV < 125 cm/s: ratio < 2.0: ICA EDV<40 cm/s. 3. 50 to 69% stenosis=ICA PSV of 125 to 230 cm/s: ration 2.0 ? 4.0: ICA EDV 40-100 cm/s. 4. Greater than 70% stenosis to near occlusion= ICA PSV > 230 cm/s: ratio > 4.0: ICA EDV > 100 cm/s. 5. Near occlusion= ICA PSV velocities may be low or undetectable: variable ratio and ICA EDV. 6. Total occlusion=unable to detect flow.
== END | disposition home or self-care (01) ==
LOC: RADUSWWP 07:01
PROVIDERS: ATTEND Family Medicine
DX: H53.8 Other visual disturbances (principal); Z82.49 Family history of ischemic heart disease and other diseases of the circulatory system
CPT/HCPCS: 76706; 93880

== ENCOUNTER → 2022-12-29 | Outpatient (CLI) | payer BC ==
--- NOTE | 2022-12-30 09:30 | MR ---
EXAMINATION TYPE: MR angio head wo con DATE OF EXAM: 12/29/2022 5:27 PM CLINICAL INDICATION:Female, 57 years old with history of H34.9 UNSPECIFIED RETINAL VASCULAR OCCLUSION ; PHH, Blurry left eye. Retinal vascular occlusion. COMPARISON: Same day MRI brain. Technical: 3-D [id number] Axial with MIP reconstruction created on a separate workstation.. IV Contrast: None Findings: Vertebral arteries: The vertebral arteries are patent. Vertebral arteries are: Codominant. Basilar artery: The basilar artery is intact. The basilar artery bifurcation is normal. Internal Carotid arteries: The cervical, petrous, cavernous and supraclinoid segments are normal. IVAN: Patent with no evidence of aneurysm. ACOM: Present without evidence of aneurysm. MCA: Patent with no evidence of aneurysm. DELI CUTTER SLICER: Patent with no evidence of aneurysm. PCOM: Hypoplastic bilaterally. Visualized portions of the ophthalmic arteries near their origin appear patent and symmetric. The dis elliott portions are too small to visualize on MRA. IMPRESSION: 1. No evidence of aneurysm or significant stenosis. 2. The proximal portions of the ophthalmic arteries are patent bilaterally. The distal portions are below the sensitivity for MRA brain .
--- NOTE | 2022-12-30 09:32 | MR ---
EXAMINATION TYPE: MR brain wo/w con DATE OF EXAM: 12/29/2022 5:49 PM CLINICAL INDICATION:Female, 57 years old with history of H34.9 UNSPECIFIED RETINAL VASCULAR OCCLUSION ; PHH, Blurry left eye. Retinal vascular occlusion. COMPARISON: MR Angio 12/29/2022. TECHNIQUE: Multi planar, multi sequence imaging was performed through the brain including: T1, T2, In version recovery, susceptibility weighted imaging and gradient echo imaging and Diffusion weighted im aging. The patient was then given intravenous contrast and multi planar, T1 fat-saturation images wer e obtained. IV Contrast: 9 cc Gadavist FINDINGS: The hood-white junctions, ventricular system, basal cisterns appear unremarkable. Diffusion-weighted imaging shows no evidence of restricted diffusion to suggest acute/subacute infarct. Intracranial ar terial flow voids are maintained. Midline structures show no abnormality. Scattered foci of high T2 s ignal intensity are seen within the periventricular white matter. The susceptibility weighted images do not reveal any evidence for micro-hemorrhage. After administration of gadolinium, no abnormal enha ncement is seen. The bone marrow signal is within normal limits. Paranasal sinuses and mastoid air cells: No significant paranasal sinus disease. Visualized orbits: The globes appear symmetrical. Signal intensity of the globes and optic nerves ar e within normal limits. The intraorbital fat appears preserved. Both lacrimal glands are unremarkab le. The extraocular muscles appear symmetric. After administration of contrast, no abnormal enhanceme nt is seen. IMPRESSION: 1. No evidence of intraorbital mass or significant abnormality. 2. No evidence of intracranial mass, acute/subacute infarct, or abnormal enhancement. 3. Nonspecific white matter changes, likely related to small vessel ischemic disease.
== END | disposition home or self-care (01) ==
LOC: RADMRIMAIN 16:35
PROVIDERS: ATTEND Family Medicine
DX: H34.9 Unspecified retinal vascular occlusion (principal); H53.8 Other visual disturbances; G93.89 Other specified disorders of brain
CPT/HCPCS: 70544; 70553; A9585

== ENCOUNTER → 2023-01-12 | Outpatient (CLI) | payer BC ==
--- NOTE | 2023-01-26 18:24 | P.CEMON ---
7 DAY EVENT MONITOR REPORT: INDICATION: Cerebrovascular accident. START DATE: 01/12/2023 END DATE: 01/18/2023 Patient wore the monitor for 6 days which is 90 % of total time. FINDINGS: Overall [good] quality study. Patient's baseline rhythm was [normal sinus rhythm]. Baseline heart rate was 101 beats per minute. There were no observed atrial fibrillation, atrial flutter or sustained ventricular rhythm. There were no observed sinus pauses which were more than 2 second long. Occasional PVCs noticed during the study which appears to be monomorphic. Patient symptoms correlation: Patient triggered events corresponds to normal sinus rhythm and PVCs Thank you for letting [facility] cardiology team to get involved in this patient's care. Please feel free to contact our office in case of any specific questions. Konrad Obregon MD, RPVI Cardiovascular Disease
--- NOTE | 2023-01-29 08:47 | EM ---
7 DAY EVENT MONITOR REPORT: INDICATION: Cerebrovascular accident. START DATE: 01/12/2023 END DATE: 01/18/2023 Patient wore the monitor for 6 days which is 90 % of total time. FINDINGS: Overall [good] quality study. Patient's baseline rhythm was [normal sinus rhythm]. Baseline heart rate was 101 beats per minute. There were no observed atrial fibrillation, atrial flutter or sustained ventricular rhythm. There were no observed sinus pauses which were more than 2 second long. Occasional PVCs noticed during the study which appears to be monomorphic. Patient symptoms correlation: Patient triggered events corresponds to normal sinus rhythm and PVCs MTDD
== END | disposition home or self-care (01) ==
LOC: RADECHMAIN 07:15
PROVIDERS: ATTEND Family Medicine
DX: H34.9 Unspecified retinal vascular occlusion (principal); I63.9 Cerebral infarction, unspecified
CPT/HCPCS: 93270

== ENCOUNTER 2023-02-16 06:03 | Day surgery (SDC) | payer BC ==
[2023-02-16] MEDS ORDERED: SODIUM CHLORIDE 0.9% 1,000 ML IV ONE (06:50)
[2023-02-16 07:03] VITALS: RESP 18; TEMP 98.3
[2023-02-16 07:04] LABS: Glucose,Whole Blood 113 mg/dL (70-110)
[2023-02-16] MEDS ORDERED: fentaNYL (PF) 50 MCG/ML 2 ML AMP ONE (07:12)
[2023-02-16] MEDS: BENZOCAINE SPRAY 1 CAN TOPICAL ONE ×2 (07:30→07:37)
[2023-02-16] MEDS ORDERED: SODIUM CHLORIDE 0.9% 500 ML 500 ML IV ONE (07:32)
[2023-02-16] MEDS: fentaNYL (PF) 50 MCG/ML 2 ML AMP IVP ONE ×2 (07:38→07:41)
[2023-02-16] MEDS ORDERED: MIDAZOLAM 2 MG/2 ML VIAL IVP ONE ×2 (07:38→07:41)
--- NOTE | 2023-02-16 07:52 | P.PCN ---
Date of Procedure: 02/16/23 Operative Findings: TRANSESOPHAGEAL ECHOCARDIOGRAM WELDER FITTER: EVERTON VAUGHAN MD, RPVI INDICATION: Rule out patent foramen ovale as an etiology for stroke SEDATION: Conscious sedation COMPLICATION: None LEVEL OF SEDATION Moderate sedation length of 15 minutes PROCEDURE DESCRIPTION: After obtaining an informed consent, the patient was brought to transesophageal echocardiogram room. Pulse oximetry and heart monitors were attached to the patient. The patient throat was sprayed using lidocaine. The patient was turned into left lateral position. After that a bite guard was placed. After an appropriate conscious sedation was initiated, the transesophageal echocardiogram was advanced through a bite guard into the mid esophagus. A 2-D echocardiogram images, color Doppler images, continuous wave images, pulse-wave images, of various cardiac structure were performed. After that the transesophageal echocardiogram probe was advanced into the stomach and fixed to obtain transgastric view was. The probe was brought into the mid esophagus. Inter-atrial septum was interrogated using 2D images, color Doppler images, and then contrast study. After that transesophageal echocardiogram was withdrawn out and upon withdrawing the descending thoracic aorta all the way up to the arch was evaluated. CONCLUSION: 1. Hyperdynamic interatrial septum with no evidence of patent foramen ovale or atrial septal defect 2. Normal left atrial appendage with no evidence of thrombus 3. No evidence of cardiac source of embolization 4. Normal LV systolic function 5. Normal intracardiac valves 6. No evidence of pericardial effusion
[2023-02-16 09:06] VITALS: BP 112/66; PULSE 93
== END 2023-02-16 09:01 | disposition home or self-care (01) ==
LOC: CATHCVL 06:03
PROVIDERS: ATTEND Internal Medicine Interventional Cardiology
DX: I67.9 Cerebrovascular disease, unspecified (principal); I34.0 Nonrheumatic mitral (valve) insufficiency; E11.69 Type 2 diabetes mellitus with other specified complication; E78.5 Hyperlipidemia, unspecified; I10 Essential (primary) hypertension; Z86.73 Personal history of transient ischemic attack (TIA), and cerebral infarction without residual deficits; Z82.49 Family history of ischemic heart disease and other diseases of the circulatory system; Z79.899 Other long term (current) drug therapy; Z79.84 Long term (current) use of oral hypoglycemic drugs; Z79.890 Hormone replacement therapy; Z79.02 Long term (current) use of antithrombotics/antiplatelets; Z79.85 Long-term (current) use of injectable non-insulin antidiabetic drugs; Z79.1 Long term (current) use of non-steroidal anti-inflammatories (NSAID)
CPT/HCPCS: 93312; 93320; 93325; 99152; J2250; J3010

== ENCOUNTER → 2023-02-23 | Outpatient (CLI) | payer BC ==
--- NOTE | 2023-02-25 17:38 | MM ---
Reason for Exam: Screening (asymptomatic). Last mammogram was performed 1 year(s) and 7 month(s) ago. Patient History: Menarche at age 14. First Full-Term at age 26. Postmenopausal. 2003, Bilateral Implants. Maternal grandmother had breast cancer at or over age 50. Paternal aunt had breast cancer at or over age 50. Maternal aunt had breast cancer at or over age 50. Risk Values: Bridgette 5 year model risk: 1.4%. NCI Lifetime model risk: 8.9%. Prior Study Comparison: 04/17/2019 Bilateral Screening Mammogram, [facility]. 07/01/2020 Bilateral Screening Mammogram, [facility]. 07/29/2021 Bilateral MG 3D screen mammo imp/cad., [facility]. Tissue Density: There are scattered fibroglandular densities. Findings: Analyzed By CAD. The pattern is symmetrical. Bilateral breast prostheses are present. No significant interval changes are evident. No suspicious groups of microcalcifications, spiculated or lobular masses, architectural distortion or other secondary signs of malignancy are mammographically apparent. Overall Assessment: Benign, BI-RAD 2 Management: Screening Mammogram of both breasts in 1 year. A negative mammogram report should not preclude additional follow up of suspicious palpable abnormalities. Patient should continue monthly self breast exam. A clinical breast exam by your physician is recommended on an annual basis and results should be correlated with mammographic findings. Electronically signed and approved by: Reuben Mcgraw D.O. Radiologis
== END | disposition home or self-care (01) ==
LOC: RADMAMWWP 07:26
PROVIDERS: ATTEND Family Medicine
DX: Z12.31 Encounter for screening mammogram for malignant neoplasm of breast (principal); Z78.0 Asymptomatic menopausal state; Z80.3 Family history of malignant neoplasm of breast
CPT/HCPCS: 77063; 77067

== ENCOUNTER 2023-02-27 19:34 | Emergency (ER) | payer BC ==
--- NOTE | 2023-02-27 19:48 | ED ---
Chest Pain HPI - General Source: patient Mode of arrival: wheelchair Limitations: no limitations <Lexi Rodas - Last Filed: 02/27/23 20:09> <Jae Denton - Last Filed: 02/28/23 01:55> - General Chief Complaint: Chest Pain Stated Complaint: Chest Pain,Sob Time Seen by Provider: 02/27/23 19:46 - History of Present Illness Initial Comments: Quick note: 57-year-old female presenting with chief complaint of shortness of breath. She was mopping when she became diaphoretic and had sudden onset of right-sided chest pain Electronically signed Lexi Rodas PA-C (Lexi Rodas) - Related Data Home Medications Medication Instructions Recorded Confirmed Ertugliflozin/Metformin 1 tab PO BID 06/02/19 02/16/23 [Segluromet 7.5-1,000 mg Tablet] Pravastatin Sodium [Pravachol] 20 mg PO DAILY 06/02/19 02/16/23 Venlafaxine HCl ER [Effexor XR] 300 mg PO DAILY 06/02/19 02/16/23 Brimonidine Tartrate [Alphagan P 1 drops BOTH EYES DAILY 02/13/23 02/16/23 0.2% Ophth Soln] Clopidogrel [Plavix] 75 mg PO HS 02/13/23 02/16/23 Famotidine 20 mg PO DAILY 02/13/23 02/16/23 Lisinopril-Hctz 20-25 mg 1 tab PO DAILY 02/13/23 02/16/23 [Zestoretic 20-25] Meloxicam [Mobic] 15 mg PO DAILY 02/13/23 02/16/23 Tirzepatide [Mounjaro] 7.5 mg SQ WE 02/13/23 02/16/23 Allergies Allergy/AdvReac Type Severity Reaction Status Date / Time No Known Allergies Allergy Verified 02/16/23 06:52 Review of Systems ROS Other: All systems not noted in ROS Statement are negative. <Lexi Rodas - Last Filed: 02/27/23 20:09> ROS Other: All systems not noted in ROS Statement are negative. <Jae Denton - Last Filed: 02/28/23 01:55> ROS Statement: Those systems with pertinent positive or pertinent negative responses have been documented in the HPI. 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 History of Any Multi-Drug Resistant Organisms: None Reported Past Surgical History: Section Past Anesthesia/Blood Transfusion Reactions: No Reported Reaction Past Psychological History: Anxiety Smoking Status: Never smoker Past Alcohol Use History: None Reported Past Drug Use History: None Reported - Past Family History Mother Family Medical History: Diabetes Mellitus Father Family Medical History: Cancer, Diabetes Mellitus, Hypertension <Lexi Rodas - Last Filed: 02/27/23 20:09> General Exam Limitations: no limitations <Lexi Rodas - Last Filed: 02/27/23 20:09> - General Exam Comments Initial Comments: Visual Physical Exam Vital signs reviewed General: nontoxic, she appears anxious Head: Normocephalic, atraumatic Eyes: PERRLA, EOMI ENT: Airway patent Chest: labored breathing Skin: No visual rash, normal skin tone Neuro: Alert and oriented 3 Musculoskeletal: No gross abnormalities (Lexi Rodas) Course Vital Signs 02/27/23 19:40 Temperature 97.9 F Pulse Rate 101 H Respiratory 22 Rate Blood Pressure 143/88 O2 Sat by Pulse 100 Oximetry Chest Pain MDM <Jae Denton - Last Filed: 02/28/23 01:55> - [facility] Patient's 57-year-old woman here to be evaluated. She was seen by the physician assistant speech language pathologist and had studies ordered. I interpreted the studies and then went to see the patient but was informed that she had signed out prior to my seeing her. (Jae Denton) Disposition <Lexi Rodas - Last Filed: 02/27/23 20:09> Is patient prescribed a controlled substance at d/c from ED?: No <Jae Denton - Last Filed: 02/28/23 01:55> Clinical Impression: Chest pain Disposition: HOME SELF-CARE Condition: Good Instructions (If sedation given, give patient instructions): Chest Pain (ED) Referrals: Russell Valdez MD [Primary Care Provider] - 1-2 days
[2023-02-27 20:00] VITALS: BP 143/88; PULSE 101; RESP 22; TEMP 97.9
[2023-02-27 20:27] LABS: Basophils % (A) 1 %; Eosinophils % (A) 0 %; HCT 46.8 % (34.0-46.0); HGB 16.5 gm/dL (11.4-16.0); Lymphocytes # (A) 2.7 k/uL (1.0-4.8); Lymphocytes % (A) 39 %; MCH 32.3 pg (25.0-35.0); MCHC 35.3 g/dL (31.0-37.0); MCV 91.5 fL (80.0-100.0); Mean Platelet Volume 7.1; Monocytes # (A) 0.4 k/uL (0-1.0); Monocytes % (A) 5 %; Neutrophils # (A) 3.7 k/uL (1.3-7.7); Neutrophils % (A) 52 %; Platelet Count 226 k/uL (150-450); RBC 5.11 m/uL (3.80-5.40); RDW 12.5 % (11.5-15.5)
--- NOTE | 2023-02-27 20:34 | XR ---
EXAMINATION TYPE: XR chest 2V DATE OF EXAM: 02/27/2023 COMPARISON: NONE HISTORY: Chest pain TECHNIQUE: Frontal and lateral views of the chest are obtained. FINDINGS: There is no focal air space opacity, pleural effusion, or pneumothorax seen. The cardiac silhouette size is within normal limits. The osseous structures are intact. IMPRESSION: No acute cardiopulmonary process.
[2023-02-27 20:36] LABS: ALT 38 U/L (4-34); AST 32 U/L (14-36); African American GFR (CKD) >90 (>60 ml/min/1.73 sqM); Alkaline Phosphatase 81 U/L (38-126); Anion Gap 12 mmol/L; Blood Urea Nitrogen 20 mg/dL (7-17); Calcium 10.2 mg/dL (8.4-10.2); Carbon Dioxide 18 mmol/L (22-30); Chloride 107 mmol/L (98-107); Glucose 162 mg/dL (74-99); Magnesium 2.1 mg/dL (1.6-2.3); Non-African American GFR(CKD) >90 (>60 ml/min/1.73 sqM); Potassium 3.5 mmol/L (3.5-5.1); Sodium 137 mmol/L (137-145); Total Bilirubin 0.4 mg/dL (0.2-1.3); Total Protein 6.6 g/dL (6.3-8.2)
[2023-02-27 20:44] LABS: INR 0.9 (<1.2); Partial Thromboplastin Time 24.9 sec (22.0-30.0); Prothrombin Time 10.2 sec (10.0-12.5)
== END 2023-02-28 01:10 | disposition left against medical advice (07) ==
LOC: EC 19:34
DX: R07.9 Chest pain, unspecified (principal); I10 Essential (primary) hypertension; E11.9 Type 2 diabetes mellitus without complications; E78.5 Hyperlipidemia, unspecified; F41.9 Anxiety disorder, unspecified; Z79.899 Other long term (current) drug therapy; Z53.29 Procedure and treatment not carried out because of patient's decision for other reasons
CPT/HCPCS: 36415; 71046; 80053; 83735; 84484; 85025; 85610; 85730; 93005; 99285

== ENCOUNTER → 2023-03-07 | Outpatient (CLI) | payer BC | END | disposition home or self-care (01) | LOC: LABWHC1 14:02 | PROVIDERS: ATTEND Nurse Practitioner Adult Health | DX: R06.09 Other forms of dyspnea (principal) | CPT/HCPCS: 36415; 85379 ==

== ENCOUNTER → 2023-03-10 | Outpatient (CLI) | payer BC ==
--- NOTE | 2023-03-11 11:29 | MR ---
EXAMINATION TYPE: MR lumbar spine wo con DATE OF EXAM: 03/10/2023 COMPARISON: None HISTORY: Lower back pain, radiates down right outer thigh. CONTRAST: 0 mL intravenous Gadavist. TECHNIQUE: Multiplanar, multisequence images of the lumbar spine were acquired. FINDINGS: L5-S1: No significant disc bulge or disc herniation. No spinal canal stenosis. No foraminal stenosi s. L4-L5: No significant disc bulge or disc herniation. No spinal canal stenosis. No foraminal stenosi s. L3-L4: There is a grade 1 spondylolisthesis of L3 anteriorly on L4. Modic type I degenerative changes are within the L3-4 vertebral bodies. There is narrowing of the disc height. No AP spinal canal sten osis is present. There appears to be severe right and mild left foraminal stenosis. Correlate with ri ght L4 radicular symptoms L2-L3: No significant disc bulge or disc herniation. No spinal canal stenosis. No foraminal stenosi s. L1-L2: No significant disc bulge or disc herniation. No spinal canal stenosis. No foraminal stenosi s. T12-L1: No significant disc bulge or disc herniation. No spinal canal stenosis. No foraminal stenos is. IMPRESSION: 1. Degenerative disc changes with a grade 1 spondylolisthesis and endplate changes at L3-4. No spinal canal stenosis is present. There is however severe right foraminal stenosis with suspected nerve com pression within the right foramen. Correlation with right L4 radicular symptoms.
== END | disposition home or self-care (01) ==
LOC: RADMRIMAIN 14:00
PROVIDERS: ATTEND Family Medicine
DX: M43.16 Spondylolisthesis, lumbar region (principal); M99.73 Connective tissue and disc stenosis of intervertebral foramina of lumbar region; M51.36 Other intervertebral disc degeneration, lumbar region
CPT/HCPCS: 72148

== ENCOUNTER → 2023-04-04 | Outpatient (CLI) | payer BC ==
--- NOTE | 2023-04-05 09:21 | US ---
EXAMINATION TYPE: US mass soft tissue chest/back DATE OF EXAM: 04/04/2023 COMPARISON: 02/27/2023 - Chest XR CLINICAL INDICATION: Female, 57 years old with history of M95.8 DEFORMITY; Lump x 3 weeks TECHNIQUE: Targeted scanning of the patient's lump at the left clavicle. FINDINGS: Air And Water Filler notes: Hypoechoic area superior to irregular bony surface on clavicle = 1.4 x .04 x 0.9 cm IMPRESSION: The provided images are suspected to reflect underlying left-sided sternoclavicular joint OA with prominent bony spurring and associated capsular hypertrophy. If further imaging assessment i s desired, a CT can be considered.
== END | disposition home or self-care (01) ==
LOC: RADUSWWP 16:18
PROVIDERS: ATTEND Family Medicine
DX: M95.8 Other specified acquired deformities of musculoskeletal system (principal)

== ENCOUNTER → 2023-04-13 | Outpatient (CLI) | payer BC ==
--- NOTE | 2023-04-15 21:26 | CT ---
EXAMINATION TYPE: CT chest wo con DATE OF EXAM: 04/13/2023 COMPARISON: Ultrasound 04/04/2023 HISTORY: 57-year-old female M95.8, other acquired deformities, left sided lump clavicle TECHNIQUE: Contiguous axial scanning of the chest without IV contrast. Coronal/sagittal reconstructio ns performed. CT DLP: 733mGycm. Automatic exposure control utilized for a dose reduction. FINDINGS: The heart is normal size without pericardial effusion. Borderline ectatic ascending aorta 3.5 cm. Conventional arch vessel branching anatomy. No thoracic lymphadenopathy by CT size criteria. Lungs show some streaky atelectasis at the lung bases. No consolidation or pleural effusion. Tiny hiatal hernia. Prominent ingested debris within the stomach. Moderate stool burden. Tiny inferio r splenule. Bones: No osseous destructive process. We note a palpable marker at the anterior left base of the neck. On sagittal images, just subjacent t o this area is a mild degenerative left sternoclavicular joint. No abnormal soft tissue mass is ident ified. No abnormal underlying lymphadenopathy or other bony abnormality is seen. Bilateral breast implants. IMPRESSION: 1. Palpable marker along the anterior left base of the neck. Just subjacent to the marker on sagittal images is a mildly degenerative left sternoclavicular joint. 2. No lymphadenopathy or abnormal soft tissue mass is identified in this region. Clinical follow-up c an be performed. Consider repeat ultrasound if any enlarging abnormality is detected. 3. Tiny hiatal hernia.
== END | disposition home or self-care (01) ==
LOC: RADCTMAIN 14:20
PROVIDERS: ATTEND Family Medicine
DX: K44.9 Diaphragmatic hernia without obstruction or gangrene (principal); M95.8 Other specified acquired deformities of musculoskeletal system
CPT/HCPCS: 71250

== ENCOUNTER → 2024-06-25 | Outpatient (CLI) | payer BC ==
--- NOTE | 2024-06-25 07:34 | MM ---
Reason for Exam: Hx of breast augmentation, asymptomatic. Last mammogram was performed 1 year(s) and 4 month(s) ago. Patient History: Menarche at age 14. First Full-Term at age 26. Postmenopausal. 2003, Bilateral Implants. Maternal grandmother had breast cancer at or over age 50. Paternal aunt had breast cancer at or over age 50. Maternal aunt had breast cancer at or over age 50. Risk Values: Bridgette 5 year model risk: 1.4%. NCI Lifetime model risk: 8.7%. Prior Study Comparison: 07/01/2020 Bilateral Screening Mammogram, [facility]. 07/29/2021 Bilateral MG 3D screen mammo imp/cad., [facility]. 02/23/2023 Bilateral MG 3D screen mammo imp/cad., [facility]. Tissue Density: There are scattered areas of fibroglandular density. Findings: Analyzed By CAD. Bilateral subglandular implants are redemonstrated. A few tiny benign-appearing round calcifications throughout the left breast are again seen. There is no suspicious group of microcalcifications or new suspicious mass in either breast. Overall Assessment: Benign, BI-RAD 2 Management: Screening Mammogram of both breasts in 1 year. . Patient should continue monthly self-breast exams. A clinical breast exam by your physician is recommended on an annual basis. This exam should not preclude additional follow-up of suspicious palpable abnormalities. Note on Bridgette scores and lifetime risk: 1. A Bridgette score greater than 3% is considered moderate risk. If this is the case, consider specialist referral to assess eligibility for a risk reducing agent. 2. If overall lifetime risk for the development of breast cancer is 20% or higher, the patient may qualify for future screening with alternating mammogram and breast MRI. [facility], , 06/25/2024 7:31 AM. Electronically signed and approved by: Laith Fournier M.D.
== END | disposition home or self-care (01) ==
LOC: RADMAMWWP 06:51
PROVIDERS: ATTEND Family Medicine
DX: Z12.31 Encounter for screening mammogram for malignant neoplasm of breast (principal); R92.323 Mammographic fibroglandular density, bilateral breasts; Z78.0 Asymptomatic menopausal state; Z80.3 Family history of malignant neoplasm of breast
CPT/HCPCS: 77063; 77067